=== PATIENT | female | born 1975 | race Caucasian/White ===

== ENCOUNTER 2018-09-04 23:44 | Emergency (ER) | payer OTHER ==
[~2018-09-04] VITALS: Ht 162.6 cm; Wt 97.5 kg
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
--- NOTE | 2018-09-05 00:01 | NUR ---
ER at bedside
[2018-09-05] MEDS ORDERED: OXYCODONE/APAP 5-325 MG TABLET ONE ×2 (00:09→00:11)
--- NOTE | 2018-09-05 00:12 | NUR ---
Patient discharged to home in stable conditon. Written and verbal after care instructions given. Patient verbalizes understanding of instructions. Ambulated from ER with stable gait. Instructed not to drive due to recent narcotic intake. All belongings with patient.
[2018-09-05 00:13] VITALS: BP 141/81
[2018-09-05] MEDS ORDERED: OXYCODONE/APAP 5-325 MG TABLET PO ONE (00:15)
[2018-09-06] MEDS ORDERED: IBUP-1955 PO (23:49)
[2018-09-06] MEDS ORDERED: OXYC-133 PO (23:49)
== END 2018-09-05 00:18 | disposition home or self-care (01) ==
LOC: ER 23:48
DX: S16.1XXA Strain of muscle, fascia and tendon at neck level, initial encounter (principal); V43.52XA Car driver injured in collision with other type car in traffic accident, initial encounter; Y93.89 Activity, other specified; Y92.410 Unspecified street and highway as the place of occurrence of the external cause; Y99.8 Other external cause status
CPT/HCPCS: A4663

== ENCOUNTER 2018-09-06 23:38 | Emergency (ER) | payer OTHER ==
[~2018-09-06] VITALS: Ht 162.6 cm; Wt 95.3 kg
[2018-09-06] MEDS ORDERED: OXYC-133 PO (23:49)
[2018-09-06] MEDS ORDERED: IBUP-1955 PO (23:49)
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
--- NOTE | 2018-09-07 | NUR ---
DENISE RIOS at bedside for MSE.
--- NOTE | 2018-09-07 00:16 | NUR ---
Radiology at [facility] for X-ray.
--- NOTE | 2018-09-07 00:38 | NUR ---
DENISE RIOS at bedside.
[2018-09-07 00:45] VITALS: BP 140/88
--- NOTE | 2018-09-07 00:46 | NUR ---
Patient discharged to home in stable conditon. Written and verbal after care instructions given. Patient verbalizes understanding of instructions. Patient ambulated from the ER with steady gait. All belongings with patient.
== END 2018-09-07 00:47 | disposition home or self-care (01) ==
LOC: ER 23:38
DX: S20.211A Contusion of right front wall of thorax, initial encounter (principal); M79.671 Pain in right foot; Z79.1 Long term (current) use of non-steroidal anti-inflammatories (NSAID); Z79.899 Other long term (current) drug therapy; V49.9XXA Car occupant (driver) (passenger) injured in unspecified traffic accident, initial encounter; Y93.89 Activity, other specified; Y92.89 Other specified places as the place of occurrence of the external cause; Y99.8 Other external cause status
CPT/HCPCS: 71045; 73630; 93005; A4663